=== PATIENT | female | born 1965 | race Caucasian/White ===

== ENCOUNTER 2017-07-18 01:10 | Emergency (ER) | payer MEDICAID, OTHER ==
[~2017-07-18] VITALS: Ht 157.5 cm; Wt 78.0 kg
[2017-07-18] MEDS ORDERED: MORPHINE SULFATE 4 MG/ML CPJ (NOT FOR IM USE) IV STA (01:41)
[2017-07-18] MEDS ORDERED: SODIUM CHLORIDE 0.9% 1,000 ML IV ONE (01:41)
[2017-07-18] MEDS ORDERED: ONDANSETRON HCL 4MG/2ML VIAL IV STA (01:41)
[2017-07-18] MEDS ORDERED: HYDROCODONE/ACETAMINOPHEN 10/325MG TABLET PO ONE (04:00)
[2017-07-18 04:56] VITALS: BP 139/87
== END 2017-07-18 07:21 | disposition home or self-care (01) ==
LOC: ER 01:10
DX: S82.51XA Displaced fracture of medial malleolus of right tibia, initial encounter for closed fracture (principal); V49.88XA Car occupant (driver) (passenger) injured in other specified transport accidents, initial encounter; Y93.89 Activity, other specified; Y92.89 Other specified places as the place of occurrence of the external cause; Y99.8 Other external cause status
CPT/HCPCS: 71010; 73590; 73610; 73630; 81025; 96374; 96375; 99284; J2270; J2405; J7030; Z7610

== ENCOUNTER 2021-04-16 01:47 | Emergency (ER) | payer MEDICAID, OTHER ==
[~2021-04-16] VITALS: Ht 139.7 cm; Wt 54.0 kg
[2021-04-16] MEDS ORDERED: MORPHINE SULFATE 2 MG/ML CPJ (NOT FOR IM USE) IV ONE (02:30)
[2021-04-16] MEDS ORDERED: ONDANSETRON HCL 4MG/2ML INJ IV ONE (02:30)
[2021-04-16] MEDS ORDERED: PROPOFOL 200MG/20ML VIAL IV ONE (03:30)
[2021-04-16] MEDS ORDERED: IBUP-2028 MT (05:06)
[2021-04-16 05:38] VITALS: BP 126/72
== END 2021-04-16 05:49 | disposition home or self-care (01) ==
LOC: ER 01:47
DX: S52.591A Other fractures of lower end of right radius, initial encounter for closed fracture (principal); W01.0XXA Fall on same level from slipping, tripping and stumbling without subsequent striking against object, initial encounter; Y93.89 Activity, other specified; Y92.89 Other specified places as the place of occurrence of the external cause; Y99.8 Other external cause status
CPT/HCPCS: 25605; 73100; 73120; 96374; 96375; 99152; 99285; J2270; J2405; J2704; A4565

== ENCOUNTER 2022-10-04 19:33 | Emergency (ER) | payer MEDICAID, OTHER ==
[~2022-10-04] VITALS: Ht 142.2 cm; Wt 57.0 kg
[~2022-10-04 19:33] MED LIST: IBUP-2028 MT
[2022-10-04 19:52] VITALS: BP 145/71
[2022-10-04 23:29] LABS: BASOPHILS % 0.8 % (0.0-2.0); EOSINOPHILS % 3.9 % (0.0-5.0); HEMATOCRIT. 39.6 % (36.0-48.0); HEMOGLOBIN. 13.5 g/dL (12.0-16.0); LYMPHOCYTES % 26.3 % (20.0-50.0); MEAN CORPUSCULAR HEMOGLOBIN 30.8 pg (28.0-32.0); MEAN CORPUSCULAR VOLUME 90.2 fL (81.0-99.0); MEAN PLATELET VOLUME 8.7 fl (7.4-10.4); MONOCYTES % 8.1 % (2.0-8.0); NEUTROPHILS % 60.9 % (40.0-76.0); PLATELET 247 x1000/uL (130-400); RED BLOOD CELL COUNT 4.38 mill/uL (4.2-5.4); RED CELL DISTRIBUTION WIDTH 13.1 % (11.6-14.6)
[2022-10-04 23:38] LABS: CLARITY URINE CLEAR (CLEAR); COLOR URINE YELLOW (YELLOW); KETONES URINE NEGATIVE (NEGATIVE); LEUKOCYTE ESTERASE URINE NEGATIVE (NEGATIVE); NITRITE URINE NEGATIVE (NEGATIVE); OCCULT BLOOD URINE TRACE (NEGATIVE); PH URINE 6.5 (4.5-8.0); PROTEIN URINE NEGATIVE (NEGATIVE)
[2022-10-04 23:40] LABS: CHLORIDE 106 mEq/L (98-107)
[2022-10-05] MEDS ORDERED: IBUP-2029 MT ×3 (01:42→01:43)
[2022-10-05] MEDS ORDERED: TOPUD PO (01:45)
== END 2022-10-05 02:00 | disposition home or self-care (01) ==
LOC: ER 19:33
DX: K63.89 Other specified diseases of intestine (principal); I10 Essential (primary) hypertension
CPT/HCPCS: 36415; 74176; 80053; 81003; 83605; 85025; 99284

== ENCOUNTER 2024-04-27 19:36 | Emergency (ER) | payer MEDICAID, OTHER ==
[~2024-04-27] VITALS: Ht 139.7 cm; Wt 58.0 kg
[~2024-04-27 19:36] MED LIST changes: +IBUP-2029 MT; +TOPUD PO
[2024-04-27 19:59] VITALS: BP 190/80; RESP 18; TEMP 98.6; O2SAT 99
[2024-04-27 20:00] VITALS: PULSE 78
[2024-04-27] MEDS ORDERED: AMOX1TAB16 MT (21:31)
[2024-04-27] MEDS ORDERED: ACETAMINOPHEN 325MG TABLET PO ONE (21:45)
== END 2024-04-27 21:51 | disposition home or self-care (01) ==
LOC: ER 19:36
DX: J32.9 Chronic sinusitis, unspecified (principal); I10 Essential (primary) hypertension
CPT/HCPCS: 99284